=== PATIENT | male | born 1995 | race Caucasian/White ===

== ENCOUNTER 2016-08-12 12:20 | Emergency (ER) | payer SELFPAY ==
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
[2016-08-13] MEDS ORDERED: FLEXERIL10 MG PO (20:15)
[2016-08-13] MEDS ORDERED: DICLOFENAC PO (20:15)
== END 2016-08-12 13:22 | disposition home or self-care (01) ==
LOC: SED 12:20
DX: S53.402A Unspecified sprain of left elbow, initial encounter (principal); F17.210 Nicotine dependence, cigarettes, uncomplicated; X58.XXXA Exposure to other specified factors, initial encounter
CPT/HCPCS: 73080; 99283

== ENCOUNTER 2016-08-13 20:47 | Emergency (ER) | payer SELFPAY ==
[~2016-08-13 20:47] MED LIST: DICLOFENAC PO; FLEXERIL10 MG PO
== END 2016-08-13 21:07 | disposition left against medical advice (07) ==
LOC: SED 20:47
DX: Z53.21 Procedure and treatment not carried out due to patient leaving prior to being seen by health care provider (principal)